=== PATIENT | female | born 1965 | race Caucasian/White ===

== ENCOUNTER 2019-07-22 07:17 | Outpatient (CLI) | payer OTHER, SELFPAY ==
--- NOTE | ~2019-07-22 | US_ITS ---
EXAMINATION: US abdomen complete DATE: 07/22/2019 08:49 INDICATION: Myelofibrosis. Hepatosplenomegaly. TECHNIQUE: Multiple grayscale and Doppler ultrasound images of the abdomen were obtained. COMPARISON: Ultrasound abdomen 11/27/2017 FINDINGS: Abdominal aorta is normal in caliber. Inferior vena cava is normal. The visualized portions of the head and body of the pancreas are normal. The liver is normal in size. There is a chronic 4.2 cm hyperechoic mass in the liver, likely a hemangioma or focal steatosis. There is normal flow in ma in portal vein. The gallbladder is normal in size. No gallstones or gallbladder wall thickening. Ther e was no sonographic Mojica sign. The common duct is normal and measures 4 mm. The kidneys are normal in size. There is splenomegaly measuring 17.1 cm. IMPRESSION: 1. Moderate splenomegaly. Reviewed, dictated and finalized at location A. LOADER IMPRESSION: 1. Moderate splenomegaly.
== END 2019-07-22 07:18 | disposition home or self-care (01) ==
PROVIDERS: Visit Provider Internal Medicine Medical Oncology
DX: R16.1 Splenomegaly, not elsewhere classified (principal); D75.81 Myelofibrosis
CPT/HCPCS: 76700

== ENCOUNTER 2022-04-24 15:53 | Emergency (ER) | payer BC, SELFPAY ==
--- NOTE | ~2022-04-24 | XR_ITS ---
XR chest 2V INDICATION: Cough with shortness of breath TECHNIQUE: 2 view chest. FINDINGS: No prior studies for comparison. There is mild bilateral interstitial prominence and peribronchial cuffing. There is elevation of the right diaphragm. There is no focal consolidation, pleural effusion, or pneumothorax. The cardiomediastinal silhouette is normal. IMPRESSION: 1. Findings most consistent with bronchiolitis versus an atypical or viral pneumonia. Reviewed, dictated and finalized at location A. MENT ASSEMBLER IMPRESSION: 1. Findings most consistent with bronchiolitis versus an atypical or viral pne [facility].
[2022-04-24 16:08] VITALS: BP 120/64; PULSE 92; RESP 24; TEMP 36.7; O2SAT 93
--- NOTE | 2022-04-24 16:22 | ED.URI ---
HPI - URI/Sore Throat General Chief Complaint: Upper Respiratory Infection Stated Complaint: Shortness of Breath,Cough Time Seen by Provider: 04/24/22 16:14 Source: patient Mode of arrival: ambulatory Limitations: no limitations History of Present Illness HPI Narrative: Patient presents today with a 3 day history of shortness of breath with exertion with productive cough and rhinorrhea that started today. Denies fever or sore throat. No history of asthma or COPD. She has not tried any [id number] medication for her symptoms prior to arrival. She is a nonsmoker. Related Data Home Medications Medication Instructions Recorded Confirmed allopurinol 300 mg tablet 300 mg PO DAILY 04/24/22 04/24/22 aspirin 81 mg tablet 81 mg PO DAILY 04/24/22 04/24/22 fluoxetine 10 mg capsule 10 mg PO DAILY 04/24/22 04/24/22 furosemide 20 mg tablet 20 mg PO DAILY 04/24/22 04/24/22 lisinopril 20 mg tablet 20 mg PO DAILY 04/24/22 04/24/22 Allergies Allergy/AdvReac Type Severity Reaction Status Date / Time No Known Allergies Allergy Verified 04/24/22 15:59 Review of Systems Review of Systems: CONSTITUTIONAL: Denies body aches, fever, chills, or sweats. EYES: Denies visual changes, redness, or discharge. ENT: Denies congestion, sore throat, or otalgia.+ Rhinorrhea CARDIOVASCULAR: Denies chest pain, palpitations, or edema. RESPIRATORY: + cough, shortness of breath with exertion. GASTROINTESTINAL: Denies abdominal pain, nausea, vomiting, or diarrhea. GENITOURINARY: Denies dysuria or hematuria. SKIN: Denies rash, itching, or wounds. MUSCULOSKELETAL: Denies back pain, joint pain, or myalgia. NEUROLOGIC: Denies headache, numbness, tingling, or weakness. PSYCH: Denies depression or anxiety. PMFSH Comments At time of signature, I have reviewed and agree with nursing past medical, surgical, social and family history unless otherwise noted. Please see nursing chart for further information. There is no relevant family history pertinent to the presenting complaint Exam Narrative: GENERAL: Well-appearing, well-nourished, and in no acute distress. HEAD: Normocephalic, atraumatic. EYES: EOMI. No redness or drainage. Conjunctivae normal. ENT: Mucous membranes pink and moist. Nares clear. No rhinorrhea. TMs normal bilaterally. Throat normal. Uvula midline. NECK: Normal AROM. Supple. No lymphadenopathy. CHEST: No respiratory distress. Clear to auscultation. HEART: Regular rate and rhythm. No murmur appreciated. Normal peripheral pulses. EXTREMITIES: Normal range of motion. No edema. SKIN: Warm, dry, no rash. Capillary refill normal. Normal skin turgor. NEURO: No focal deficits. Alert and oriented x3. Gait steady. PSYCH: Normal affect. No signs of depression or anxiety. Course Course Level of Care: Express Care Visit Vital Signs Vital signs: Vital Signs Temperature 98.0 F 04/24/22 16:08 Pulse Rate 92 04/24/22 16:08 Respiratory Rate 24 H 04/24/22 16:08 Blood Pressure 120/64 04/24/22 16:08 Pulse Oximetry 93 04/24/22 16:08 Oxygen Delivery Room Air 04/24/22 16:08 Temperature 98.0 F 04/24/22 16:08 Pulse Rate 92 04/24/22 16:08 Respiratory Rate 24 H 04/24/22 16:08 Blood Pressure 120/64 04/24/22 16:08 Pulse Oximetry 93 04/24/22 16:08 Oxygen Delivery Room Air 04/24/22 16:08 reviewed MDM - URI/Sore Throat MDM Narrative Medical decision making narrative: Will treat pt with abx to cover for atypical pneumonia. Will also treat her with some steroids for shortness of breath. Differential Diagnosis Differential diagnosis: Likely upper respiratory infection, viral infection, bronchitis, influenza and other ( COVID-19, pneumonia) Lab Data Attestation: I reviewed the patient's lab results. Lab results narrative: COVID-19 negative Labs: Influenza A Screen Negative Reference Range: Negative Influenza B Screen
== END 2022-04-24 17:00 | disposition home or self-care (01) ==
PROVIDERS: Emergency Provider Nurse Practitioner; PCP Family Medicine
DX: J18.9 Pneumonia, unspecified organism (principal); Z79.82 Long term (current) use of aspirin; Z20.822 Contact with and (suspected) exposure to COVID-19
CPT/HCPCS: 71046; 87426; 87804; 99213; C9803; G0463

== ENCOUNTER → 2023-09-23 15:50 | Outpatient (CLI) | payer BC, SELFPAY ==
--- NOTE | ~2023-09-23 | XR_ITS ---
XR hip RT min 2V 09/23/2023 16:02 Indication: Right hip pain Procedure: 2 views right hip Comparison: No prior studies for comparison. Findings: There is moderate osteoarthritis of the right hip. No fracture or traumatic malalignment. N o soft tissue abnormality. No foreign bodies. There is an amorphous calcification in the pelvis which likely represents calcified uterine fibroid. Impression: 1: Moderate osteoarthritis of the right hip. Reviewed, dictated and finalized at location B. Impression: 1: Moderate osteoarthritis of the right hip.
== END ==
LOC: EXPTRAD 15:51
PROVIDERS: PCP Nurse Practitioner Family; Visit Provider Nurse Practitioner Family
DX: M16.11 Unilateral primary osteoarthritis, right hip (principal)
CPT/HCPCS: 73502

== ENCOUNTER 2024-09-18 16:43 | Emergency (ER) | payer BC, SELFPAY ==
--- NOTE | ~2024-09-18 | XR_ITS ---
EXAM: XR abdomen/kub 1V DATE: 09/18/2024 17:57 HISTORY: R flank pain wraps around to RLQ, hematuria . COMPARISON: X-ray chest 04/24/2022; x-ray right hip 5-24. FINDINGS: Right hemidiaphragm elevation. No organomegaly. Normal bowel gas pattern. Degenerative sulaiman nge in the spine, SI joints, and bilateral hips. Multifocal hyperdensities and potential lytic areas in the pelvis. Likely calcified fibroid. Scattered densities over the lower abdomen probably represen ting bowel content. IMPRESSION: No radiographic evidence of obstruction or ileus. Question of mixed lytic and blastic pro cess in the pelvic bones, correlate for history of cancer/metastatic disease, multiple myeloma, or me tabolic disease. Reviewed, dictated and finalized at location K. IMPRESSION: No radiographic evidence of obstruction or ileus. Question of mixed lytic and blastic process in the pelvic bones, correlate for history of cancer /metastatic disease, multiple myeloma, or metabolic disease.
[2024-09-18 16:48] VITALS: BP 134/70; PULSE 75; RESP 16; TEMP 36.6; O2SAT 100
[2024-09-18 17:24] LABS: EDUAAPPEAR Cloudy; EDUABILI Negative (Negative); EDUABLOOD 2+ (Negative); EDUACOLOR1 Yellow; EDUAGLUCOSE Negative (Negative); EDUAKETONE Negative (Negative); EDUALEUKO 1+ (Negative); EDUANITRATE Negative (Negative); EDUAPH 5.5; EDUAPROTEIN 3+ (Negative); EDUASPGRAVITY 1.025; EDUAUROBILI 0.2
--- NOTE | 2024-09-18 17:35 | ED_ITS ---
HPI - Female Genitourinary General Chief complaint: Urogenital-Female Stated complaint: RT Side Pain Time Seen by Provider: 09/18/24 17:35 Source: patient Mode of arrival: ambulatory Limitations: no limitations History of Present Illness HPI Narrative: 59-year-old female presents with complaint of right flank pain radiating to right lower abdomen for the past 3-4 days. Reports that pain is getting progressively worse. Denies nausea vomiting. Afebrile. Not taking any [id number] medications to treat pain. No history of kidney stones. All systems reviewed and negative except as noted above. Related Data Home Medications ?Medication ?Instructions ?Recorded ?Confirmed ?Last Taken ?Type aspirin 81 mg tablet 81 mg PO DAILY 04/24/22 09/18/24 Unknown History ruxolitinib 15 mg tablet (Jakafi) mg 09/18/24 Unknown History Allergies Allergy/AdvReac Type Severity Reaction Status Date / Time No Known Allergies Allergy Verified 09/18/24 17:53 Review of Systems Review of Systems: CONSTITUTIONAL: Denies fever, chills, or sweats. EYES: Denies visual changes, redness, or discharge. ENT: Denies rhinorrhea, congestion, sore throat, or otalgia. CARDIOVASCULAR: Denies chest pain, palpitations, or edema. RESPIRATORY: Denies cough or dyspnea. GASTROINTESTINAL: Denies abdominal pain, nausea, vomiting, or diarrhea. GENITOURINARY: Denies dysuria or hematuria. Reports right flank pain radiating to lower right abdomen With urinary frequency, urgency SKIN: Denies rash or itching. MUSCULOSKELETAL: Denies back pain, joint pain, or myalgia. NEUROLOGIC: Denies headache, numbness, or weakness. PSYCHIATRIC: Denies anxiety or depression. All other systems reviewed are negative, except as documented in HPI. [facility] Past Medical History Medical History (Updated 09/18/24 @ 19:05 by Awilda Pedroza NP) Paronychia of great toe of left foot Onychomycosis Hyperlipidemia Prediabetes Heart murmur SOB (shortness of breath) on exertion BMI 35.0-35.9,adult Right hip pain Edema, lower extremity Encounter to establish care Myelofibrosis Gout Anxiety Depression HTN (hypertension) Family History Family History Father Cerebrovascular accident Hypertension Mother Pancreatic cancer Sibling Diabetes mellitus Hypertension Social History Social History Smoking status: Former smoker Alcohol intake: current Alcohol use details: occasionally Substance use: never Substance use type: does not use Lack of Transportation: No Lack of Food: Never True Current Housing: I Have Housing Concerned About Future Housing: No Difficulty Paying Gas/Electric Bills: No Difficulty Paying for Meds: No Currently Unemployed: No Education: High School Diploma/GED Difficulty w/ Childcare or Family Care: No Comments At time of signature, agree with nursing past medical, surgical, social and family history. There is no relevant family history pertinent to the presenting complaint. Exam Narrative: GENERAL: This is a well-nourished, well-developed patient, in no apparent distress. HEAD: normocephalic, atraumatic. EYES: PERRL. Sclera clear/white. Vision is grossly intact. EARS: External ears normal NOSE: External nose normal NECK: Neck supple, non-tender without lymphadenopathy, masses or thyromegaly. CARDIOVASCULAR: Regular rate and rhythm without murmurs, gallops, or rubs. RESPIRATORY: Clear to auscultation. Breath sounds equal bilaterally. No wheezes, rales, or rhonchi. GASTROINTESTINAL: Abdomen soft, non-tender, nondistended. Bowel sounds are active. No hepato-splenomegaly, or palpable masses. No guarding. SKIN: warm, Dry, intact with no suspicious lesions or rash, good texture and turgor. NEURO: awake, alert, and oriented to person, place and time. There were no obvious focal neurologic abnormalities. EXTREMITIES: No joint tenderness, effusion, or edema noted. No calf tenderness. Negative Homans sign bilaterally. BACK: No CVA tenderness. Course Course Level of Care: Express Care Visit Vital Signs Vital signs: Vital Signs Temperature 36.6 C 09/18/24 16:48 Pulse Rate 75 09/18/24 16:48 Respiratory Rate 16 09/18/24 16:48 Blood Pressure 134/70 09/18/24 16:48 Pulse Oximetry 100 09/18/24 16:48 Oxygen Delivery Room Air 09/18/24 16:48 Temperature 36.6 C 09/18/24 16:48 Pulse Rate 75 09/18/24 16:48 Respiratory Rate 16 09/18/24 16:48 Blood Pressure 134/70 09/18/24 16:48 Pulse Oximetry 100 09/18/24 16:48 Oxygen Delivery Room Air 09/18/24 16:48 reviewed MDM - Female Genitourinary MDM Narrative Medical decision making narrative: Urinalysis positive leukocytes, protein, blood. KUB negative for kidney stone. pt has myelofibrosis, type of blood cancer, Which would explain abnormality seen to patient's pelvis but I did tell her to mention it to her oncologist at next appointment. Prescribed antibiotic for urinary tract infection. Patient is alert, nontoxic. Hemodynamically stable. Recommend follow-up with primary care physician if symptoms are not improving. Please be advised this is a medical document. It is intended for [id number] communication. It is written in medical language and may contain unfamiliar abbreviations or verbiage. Medical documents are intended to carry relevant information, facts as evident, and the clinical opinion of the practitioner at the time of the encounter. This report may have been done utilizing a voice recognition system. Attempts have been made to correct errors. However, there may be uncorrected grammatical, spelling, and recognition errors present. The file time of this note does not necessarily represent the time of service. Differential Diagnosis Differential diagnosis: Likely urinary tract infection Lab Data Labs: Lab Results 09/18/24 Range/Units 17:21 POC Urine Color Yellow POC Urine Clarity Cloudy POC Urine pH 5.5 POC Ur Specif Roper 1.025 POC Urine Protein 3+ (Negative) POC Ur Glucose (UA) Negative (Negative) POC Urine Ketones Negative (Negative) POC Urine Blood 2+ (Negative) POC Urine Nitrite Negative (Negative) POC Urine Bilirubin Negative (Negative) POC Urine Urobilinogen 0.2 POC U Leukocyte Esteras 1+ (Negative) Discharge Plan Discharge Clinical Impression: Urinary tract infection Qualifiers: Urinary tract infection type: site unspecified Hematuria presence: with hematuria Qualified Code(s): N39.0 - Urinary tract infection, site not specified Patient Disposition: Home Condition: Stable Instructions: Antibiotic Form, Urinary Tract Infection in Women (ED) Additional Instructions: the x-ray of your abdomen did not show any kidney stones. Take antibiotic as prescribed to treat urinary tract infection. Drink at least 64 oz of water a day. Take Tylenol or ibuprofen every 6-8 hours as needed for pain. Follow-up with your primary care physician if symptoms are not improving. If you have severe pain , fever, vomiting go to the ER. Patient Language: [place] Prescriptions: New amoxicillin-pot clavulanate 875-125 mg tablet 1 tablet PO Q12H 7 Days Qty: 14 0RF phenazopyridine [Pyridium] 200 mg tablet 200 mg PO TID PRN (Reason: pain) 3 Days Qty: 10 0RF No Action Adult Low Dose Aspirin 81 mg Tablet 81 mg PO DAILY Jakafi 15 mg tablet furosemide 20 mg tablet 30 mg PO DAILY Qty: 135 3RF terbinafine HCl 250 mg tablet 250 mg PO DAILY Qty: 90 1RF Rx Instructions: take 1 tab daily for 90 days, stop for 90 days, then restart daily for 90 da ys. lisinopril 20 mg tablet 20 mg PO BID Qty: 180 3RF fluoxetine 10 mg capsule 10 mg PO DAILY Qty: 90 3RF metformin 500 mg tablet extended release 24 hr 500 mg PO DAILY Qty: 90 3RF Follow-up/Referrals: Kathy Michaud NP [Primary Care Provider] - Time of Disposition: 19:06
--- OUTSIDE RECORDS SUMMARY | 2024-09-18 18:26 | XMS_ITS | Clinical Summary ---
Author Organization [facility] Address [address] [place] [address] Phone Care Team Providers Care Electronic Security Specialist Name Role Phone PattroyJaden MD Unavailable [phone] Arjun Richard MD, Shaka Unavailable [phone] Arnold Johnson MD Primary Care Provider [phone] Allergies No known active allergies Medications aspirin 81 mg tabletIndications :Myelofibrosis (HCC) Take 81 mg by mouth daily. Active naproxen (ALEVE) 220 mg tablet Take by mouth 2 (two) times a day with meals Active FLUoxetine (FLUoxetine) 10 mg tablet/capsule Take 1 tablet/capsule (10 mg total) by mouth daily 90 capsule 3 2 Active lisinopriL (PRINIVIL,ZESTRIL ) 20 mg tablet Take 1 tablet (20 mg total) by mouth 2 (two) times a day 180 tablet 3 2 Active furosemide (LASIX) 20 mg tabletIndications :Essential hypertension TAKE 1 AND 1/2 TABLETS BY MOUTH DAILY 135 tablet 3 2 Active cyanocobalamin (Vitamin B-12) 2,500 mcg tablet, sublingualIndicat ions:Prevention of Vitamin B12 Deficiency 2,500 mcg Active metFORMIN XR (GLUCOPHAGE XR) 500 mg 24 hr tabletIndications :Myelofibrosis (HCC) 1 tablet (500 mg total) daily with breakfast 4 Active cephalexin (KEFLEX) 500 mg capsuleIndication s:Myelofibrosis (HCC) TAKE 1 CAPSULE BY MOUTH EVERY 8 HOURS 4 Active ruxolitinib (Jakafi) 15 mg tabletIndications :Myelofibrosis (HCC) TAKE 1 TABLET BY MOUTH 2 TIMES A DAY. TAKE AT ABOUT THE SAME TIME EACH DAY. TAKE WITH OR WITHOUT FOOD. 60 tablet 11 5 Active Active Problems Problem Noted Date Diagnosed Date Hx of colonic polyp 06/10/2021 Major depressive disorder, recurrent, moderate 0 06/10/2021 Bilateral lower extremity edema 04/16/2020 Hypogammaglobulinemia 12/28/2018 Gout 12/06/2017 Assessment & Plan (12/06/2017 9:46 AM CDT): On allopurinol and diet restriction, doing well. Myelofibrosis 12/02/2017 Overview (04/17/2024): DIAGNOSIS 1. Polycythemia Vera in 2010 2. Post-PV myelofibrosis in 2017 TREATMENT Ruxolitinib 20 mg bid starting 07/2022, reduced to 10mg bid 11/2022, increased to 15 mg bid 10/2023 Assessment & Plan (12/06/2017 9:46 AM CDT): DIPSS score 3 (Intermediate-1). She currently does not have splenomegaly and her fatigue is manageable. We will send peripheral blood for molecular analysis (genoptix) to further stratification of her risk of progression. Currently, we would favor a conservative approach with monthly CBC and close monitoring with visits every 3 months. We would not initiate Jakafi, given her symptoms are not severe enough and on the other hand there is a real risk of worsening her anemia with Jakafi. We discuss that the only curative approach for this disease is allogeneic stem cell transplant. We explained the potential risks and complications of a transplant, including, but not limited to, risk for infections GVHD, graft failure and disease relapse. We sent HLA typing today and we obtained consent to initiate a unrelated donor search, as she does not have a related donor option. We are not planning on proceeding with transplant until further progression of her disease. Essential hypertension, benign 10/07/2013 Overview (08/27/2016): HYPERTENSION NOS Assessment & Plan (12/06/2017 9:47 AM CDT): Hypertension is unchanged. Continue current treatment regimen. Blood pressure will be reassessed in 3 months. Polycythemia vera 11/09/2011 Resolved Problems Problem Noted Date Diagnosed Date Resolved Date Major depressive disorder, recurrent, mild 06/10/2021 01/17/2024 Major depressive disorder, r ecurrent, unspecified 06/10/2021 01/17/2024 Follow up 12/06/2017 01/17/2024 Assessment & Plan (12/06/2017 9:48 AM CDT): We will see her back in 3 months. She knows to call us sooner should she have any further questions or concerns. Encounters Date Type Department Care Team Description 07/17/2024 8:00 AM SUGAR REFINERY SUPERVISOR Office Visit [facility] Bone Marrow Transplant [address] [place] [phone] Jaden Jensen MD Myelofibrosis (HCC) 07/17/2024 7:15 AM SUGAR REFINERY SUPERVISOR Lab [facility] [place] - Lab Collection [address] [place] [address] [address] [place] [address] Myelofibrosis (HCC) 07/17/2024 7:00 AM SUGAR REFINERY SUPERVISOR Lab [facility] Oncology Lab [address] [place] [phone] Myelofibrosis (HCC) from Last 3 Months Immunizations Immunization Administration Dates Next Due Influenza, Unspecified 06/10/2021(Deferr ed: Patient Refused),06/12/2020(Deferred: Patient Refused),05/24/2020(Deferred: Patient Refused),05/24/2019(Deferred: Patient Refused),12/30/2016,02/27/2015,04/03/20 13 Jada (J&J) SARS-CoV-2 Vaccination 07/29/2020 ZOSTER LIVE 12/30/2016 Surgical History Surgery Date Site/Laterality Comments OTHER SURGICAL HISTORY Shoulder left 08/22/15 COLONOSCOPY Medical History Medical History Date Comments Hypertension Hypertension Hx Other Medical Hx Other Medical tubal ligation Gout H/O repair of rotator cuff Liver mass 11/2017 Hypoechoic, dete cted at abdominal US Polycythemia 10/29/2017 Family History Medical History Relation Name Comments Aneurysm Father Hypertension Father No Known Problems Half-Sister Cancer Mother Hypertension Mother Hypertension Other Family history of Hypertension; Diabetes Sister Hydrocephalus Sister Hypertension Sister Relation Name Status Comments Daughter Alive good health Father (Age 64) Half-Sister Alive Mother (Age 62) pancreatic cancer Other Sister Alive with hydrocepha jackie Social History Tobacco Use Types Packs/Day Years Used Date Smoking Tobacco: Former Cigarettes 2 8 1 - 1987 Smokeless Tobacco: Never Comments:1.5 PPD for 8 years , quit >10 years ago Alcohol Use Standard Drinks/Week Comments Yes 0 (1 standard drink = 0.6 oz pur e alcohol) Social drinking AUDIT-C Answer Date Recorded Q1: How often do you have a drink containing alc ohol? 2-4 times a month 06/10/2021 Q2: How many drinks containi ng alcohol do you have on a typical day when you are drinking? 1 or 2 06/10/2021 Q3: How often do you have si x or more drinks on one occasion? Less than monthly 06/10/2021 PHQ-2 Answer Date Recorded PHQ-2 Total Score (If total score is 3 or more points, staff should administer the PHQ-9) 0 09/08/2021 Comments Unknown Sex and Gender Information Value Date Recorded Sex Assigned at Not on file Legal Sex Female 9:14 PM SUGAR REFINERY SUPERVISOR Gender Identity Female 12/20/2020 2:11 PM CDT Sexual Orientation Straight 12/20/2020 2: 11 PM CDT Obstetrics History Last Filed Vital Signs Vital Sign Reading Time Taken Comments Blood Pressure 102/67 07/17/2024 7:58 AM SUGAR REFINERY SUPERVISOR Pulse 62 07/17/2024 7:58 AM SUGAR REFINERY SUPERVISOR Temperature 36.5 C (97.7 F) 07/17/2024 7:58 AM SUGAR REFINERY SUPERVISOR Respiratory Rate 16 07/17/2024 7:58 AM SUGAR REFINERY SUPERVISOR Oxygen Saturation 100% 07/17/2024 7:58 AM SUGAR REFINERY SUPERVISOR Inhaled Oxygen Concentration - - Weight 93 kg (205 lb) 07/17/2024 7:58 AM SUGAR REFINERY SUPERVISOR Height 162.7 cm (5' 4.06 ) 07/17/2024 7:58 AM CS T Body Mass Index 35.13 07/17/2024 7:58 AM SUGAR REFINERY SUPERVISOR Plan of Treatment Health Maintenance Due Date Last Done Comments Breast Cancer Screening-Mammogram 1965 Cervical Cancer Screening 1966 Hepatitis C Screening 1966 DTaP/Tdap/Td Vaccine (1 - Tdap) 1977 Hepatitis B Screening 01/08/1984 Pneumococcal vaccine <65 (1 of 2 - PCV) 1985 Colon Cancer Screening-Colonoscopy 05/04/20162010, 05/04/2011 Zoster Vaccine (1 of 2) 02/24/2017 12/30/2016 Covid-19 Vaccine (2 - Jansse n risk series) 08/26/2020 07/29/2020 Regular Well Visit/Exam 18-64 06/10/2022 06/10/2021 Depression Screening 09/08/2022 09/08/2021, 06/10/2021, 06/12/2020 Influenza Vaccine (Season Ended) 2025 12/30/2016, 02/27/2015, 04/03/2013 Colon Cancer Screening-CT Colonography Discontinued 05/04/2011, 05/04/2011 Colon Cancer Screening-DNA Stool Discontinued 05/04/20, 05/04/2011 Colon Cancer Screening-FIT Discontinued 05/04/2011, Colon Cancer Screening-Sigmoidoscopy Discontinued 04/23, 05/04/2011 Procedures Procedure Name Priority Date/Time Associated Diagnosis Comments EGFR Routine 07/17/2024 7:06 AM SUGAR REFINERY SUPERVISOR Myelofibrosis (HCC) DIFFERENTIAL AUTO Routine 07/17/2024 7:0 6 AM SUGAR REFINERY SUPERVISOR Myelofibrosis (HCC) CBC WITH AUTO DIFFERENTIAL Routine 07/17/2024 7:06 AM SUGAR REFINERY SUPERVISOR Myelofibrosis (HCC) COMPREHENSIVE METABOLIC PANEL Routine 07/17/2024 7:06 AM SUGAR REFINERY SUPERVISOR Myelofibrosis (HCC) LACTATE DEHYDROGENASE Routine 07/17/2024 7:06 AM SUGAR REFINERY SUPERVISOR Myelofibrosis (HCC) URIC ACID Routine 07/17/2024 7:06 AM SUGAR REFINERY SUPERVISOR Myelofibrosis (HCC) COLONOSCOPY Routine 05/04/2011 from Last 3 Months or Most Recently Relevant to Health Maintenance Results * eGFR (07/17/2024 7:06 AM SUGAR REFINERY SUPERVISOR) Pathologist [facility] eGFR 80 >=60 mL/min/1. 73 m2 Comment: Interpretive Data Reference Interval Normal >/= 90 mL/min/1.73m2 Mildly decreased* 60 - 89 mL/min/1.73m2 Mildly to moderately decreased 45 - 59 mL/min/1.73m2 Moderately to severely decreased 30 - 44 mL/min/1.73m2 Severely decreased 15 - 29 mL/min/1.73m2 Kidney Failure < 15 mL/min/1.73m2 *Relative to young adult level Estimated glomerular filtration rate is determined by the 2020 CKD-EPI equation recommended by the National Kidney Foundation (A Unifying Approach to GFR Estimation: Recommendations of the NKF-ASK Task Force on Reassessing the Inclusion of Race in Diagnosing Kidney Disease, JASN 2020). The CKD-EPI equation should not be used for patients with unstable renal function and has not been validated in children and those over 70. Current interpretive data was last reviewed 2021. Blood 07/17/2024 7:06 AM SUGAR REFINERY SUPERVISOR 07/17/2024 7:10 AM SUGAR REFINERY SUPERVISOR Jaden Jensen MD LAB BLOOD ORDERABLES Final Re sult [facility] Department of Laboratories [place], [place] [id number] * Differential, auto (07/17/2024 7:06 AM SUGAR REFINERY SUPERVISOR) Pathologist [facility] Neutrophil abs 4.8 1.5 - 6.5 K/cumm Comment:Testing performed by : [facility][Note 3] Heme Lab, [address] [place] [phone] Lymphocyte abs 2.7 0.8 - 3.3 K/cumm [facility] Comment:Testing performed by : [facility][Note 3] Heme Lab, [facility] [place] [address] Monocyte abs 0.7 0.2 - 0.8 K/cumm [facility] Comment:Testing performed by : [facility][Note 3] Heme Lab, [address] [place] [phone] Eosinophil abs 0.1 0.0 - 0.5 K/cumm [facility] Comment:Testing performed by : [facility][Note 3] Heme Lab, [address] [place] [phone] Basophil abs 0.1 0.0 - 0.1 K/cumm [facility] Comment:Testing performed by : [facility][Note 3] Heme Lab, [address] [place] [phone] Neutrophil pct 56.9 % [facility] Comment: Interpretive Data Percent cell count reference ranges are not reported, since discordance with absolute values may lead to misinterpretation of CBC data. Current Interpretive Data was last revised on 2017. Testing performed by: [facility], [address] [place] [phone] Lymphocyte pct 32.0 % [facility] Comment: Interpretive Data Percent cell count reference ranges are not reported, since discordance with absolute values may lead to misinterpretation of CBC data. Current Interpretive Data was last revised on 2017. Testing performed by: [facility][Note 3] Heme Lab, [address] [place] [phone] Monocyte pct 8.8 % [facility] Comment: Interpretive Data Percent cell count reference ranges are not reported, since discordance with absolute values may lead to misinterpretation of CBC data. Current Interpretive Data was last revised on 2017. Testing performed by: [facility], [address] [place] [phone] Eosinophil pct 1.5 % [facility] Comment: Interpretive Data Percent cell count reference ranges are not reported, since discordance with absolute values may lead to misinterpretation of CBC data. Current Interpretive Data was last revised on 2017. Testing performed by: [facility][Note 3] Heme Lab, [address] [place] [phone] Basophil pct 0.8 % [facility] Comment: Interpretive Data Percent cell count reference ranges are not reported, since discordance with absolute values may lead to misinterpretation of CBC data. Current Interpretive Data was last revised on 2017. Testing performed by: [facility], [address] [place] [address] Blood 07/17/2024 7:06 AM SUGAR REFINERY SUPERVISOR 07/17/2024 7:07 AM SUGAR REFINERY SUPERVISOR Jaden Jensen MD LAB BLOOD ORDERABLES [facility] Department [place] [address] * (ABNORMAL) CBC with auto differential (07/17/2024 7:06 AM SUGAR REFINERY SUPERVISOR) WBC 8.4 3.8 - 9.9 K/cumm Comment:Testing performed by : [facility][Note 3] Heme Lab, [address] [place] [address] Hgb 11.4(L) 11.9 - 15.5 g/dL [facility] Comment:Testing performed by : [facility][Note 3] Heme Lab, [address] [place] [address] Hct 34.8(L) 35.6 - 45.5 % [facility] Comment:Testing performed by : [facility][Note 3] Heme Lab, [address] [place] [address] Plt 159 150 - 400 K/cumm [facility] Comment:Testing performed by : [facility][Note 3] Heme Lab, [address] [place] [address] MPV 8.1 6.8 - 10.4 fL [facility] Comment:Testing performed by : [facility][Note 3] Heme Lab, [address] [place] [address] RBC 3.77(L) 3.90 - 5.20 M/cumm [facility] Comment:Testing performed by : [facility][Note 3] Heme Lab, [address] [place] [address] MCV 92.5 81.3 - 96.4 fL [facility] Comment:Testing performed by : [facility][Note 3] Heme Lab, [address] [place] [address] MCH 30.2 27.1 - 33.3 pg [facility] Comment:Testing performed by : [facility][Note 3] Heme Lab, [address] [place] [phone] MCHC 32.7 32.3 - 35.7 g/dL [facility] Comment:Testing performed by : [facility][Note 3] Heme Lab, [address] [place], [place] [phone] RDW CV 19.6(H) 11.1 - 14.9 % [facility] Comment:Testing performed by : [facility][Note 3] Heme Lab, [address] [place] [phone] NRBC abs 0.00 0.00 - 0.01 K/cumm [facility] Comment:Testing performed by : [facility][Note 3] Heme Lab, [address] [place] [phone] Blood 07/17/2024 7:06 AM SUGAR REFINERY SUPERVISOR 07/17/2024 7:07 AM SUGAR REFINERY SUPERVISOR Jaden Jensen MD LAB BLOOD ORDERABLES Final Re sult [facility] Department [place] [address] * (ABNORMAL) Uric acid (07/17/2024 7:06 AM SUGAR REFINERY SUPERVISOR) Uric acid 7.4(H) 2.5 - 7.0 mg/dL Blood 07/17/2024 7:06 AM SUGAR REFINERY SUPERVISOR 07/17/2024 7:10 AM SUGAR REFINERY SUPERVISOR Jaden Jensen MD LAB BLOOD ORDERABLES Final Re sult [facility] [place] [address] * Lactate dehydrogenase (LD) (07/17/2024 7:06 AM SUGAR REFINERY SUPERVISOR) Lactate dehydrogenase (LDH) 152 100 - 250 Units/L Blood 07/17/2024 7:06 AM SUGAR REFINERY SUPERVISOR 07/17/2024 7:10 AM SUGAR REFINERY SUPERVISOR us Jaden Jensen MD LAB BLOOD ORDERABLES Final Re sult [facility] Department [place] [address] * Comprehensive metabolic panel (07/17/2024 7:06 AM SUGAR REFINERY SUPERVISOR) Sodium 141 135 - 145 mmol/L Potassium, pl 4.2 3.3 - 4.9 mmol/L [facility] Chloride 103 97 - 110 mmol/L [facility] CO2 31 22 - 32 mmol/L [facility] Anion gap 7 2 - 15 mmol/L [facility] BUN 17 6 - 25 mg/dL [facility] Creatinine 0.84 0.60 - 1.10 mg/dL [facility] Glucose 118 70 - 199 mg/dL [facility] Comment: Interpretive Data Fasting glucose >/= 126 mg/dl is diagnostic for diabetes. Fasting is defined as no caloric intake for at least 8 hours. Fasting glucose between 100 mg/dl to 125 mg/dl is diagnostic of prediabetes. In a patient with classic symptoms of hyperglycemia or hyperglycemic crisis, a random glucose >/= 200 mg/dl is diagnostic for diabetes. In the absence of unequivocal hyperglycemia, results should be confirmed by repeat testing. The classification and Diagnosis of Diabetes Diabetes Care 2021; 46: S19-S40. Current interpretive data was last revised 2022. Calcium 9.3 8.5 - 10.3 mg/dL [facility] Bilirubin, total 0.3 0.1 - 1.2 mg/dL [facility] Protein, pl 7.1 6.5 - 8.5 g/dL [facility] Albumin 4.5 3.5 - 5.0 g/dL [facility] Alk phos 91 40 - 130 Units/L [facility] ALT 16 7 - 45 Units/L [facility] AST 28 10 - 45 Units/L [facility] Blood 07/17/2024 7:06 AM SUGAR REFINERY SUPERVISOR 07/17/2024 7:10 AM SUGAR REFINERY SUPERVISOR Jaden Jensen MD LAB BLOOD ORDERABLES Final Re sult [facility] Department [place] [address] * Colonoscopy (05/04/2011) Anatomical Region Laterality Modality Other Historical Provider ENDOSCOPY PROCEDURES Iris l Result from Last 3 Months or Most Recently Relevant to Health Maintenance Insurance [facility] ACC[facility] CHOICE [employer] ACCESS CHOICE [facility] Care Teams Electronic Security Specialist Relationship Specialty Start Date End Date Arnold Johnson MD [address] [id number] PCP - General Family Medicine 08/11/22 Jaden Jensen MD Consulting Physician Medical Oncology 12/01/17 Shaka Díaz Jr., MD Medical Oncologist/Tumbler Plater Medical Oncology 12/29/17
--- OUTSIDE RECORDS SUMMARY | 2024-09-18 18:26 | XMS_ITS | Encounter Summary ---
Author Organization [facility] Address [address] [place] [address] Phone Care Team Providers Care Deckhand Clam Dredge Name Role Phone Akil De La O MD Primary Care Provider [phone]- [phone] Reason for Visit * Reason Comments Medication Refill Encounter Details Date Type Department Care Team (Late st Contact Info) Description 06/11/2020 Refill [facility] - Internal [facility] - [place] [address] [place] [phone] Akil De La O MD [address] [facility] [place], [place] [phone] Medication Refill Social History Tobacco Use Types Packs/Day Years Used Date Smoking Tobacco: Former Cigarettes 2 10 0 11/25/1978 - 11/25/1988 Smokeless Tobacco: Never Alcohol Use Standard Drinks/Week Comments Yes 0 (1 standard drink = 0.6 oz pur e alcohol) occasionally Comments Unknown Sex and Gender Information Value Date Recorded Sex Assigned at Not on file Legal Sex Female 10:38 PM CDT Gender Identity Not on file Sexual Orientation Not on file documented as of this encounter Miscellaneous Notes * Telephone Encounter - Mali Michael RN - 06/12/2020 8:18 AM CST Please review and sign. NCE PROFESSOR documented in this encounter Plan of Treatment Not on file documented as of this encounter Visit Diagnoses Not on filedocumented in this encounter Care Teams Deckhand Clam Dredge Relationship Specialty Start Date End Date De La O, Akil K, MD [address] [place] [address] PCP - General Internal Medicine 11/01/18 02/19/22 documented as of this encounter
--- OUTSIDE RECORDS SUMMARY | 2024-09-18 18:26 | XMS_ITS | Encounter Summary ---
Author Organization [facility] Address [address] [place] [address] Phone Care Team Providers Care Digital Account Director Name Role Phone Akil De La O MD Primary Care Provider [phone] Reason for Visit * Reason Comments Medication Refill Encounter Details Date Type Department Care Team (Late st Contact Info) Description 11/20/2020 Refill [facility] - Internal Medicine - [place] [address] [place] [phone] Akil De La O MD [address] [facility] [address] Medication Refill Social History Tobacco Use Types [...] Telephone Encounter - Mali Michael RN - 11/21/2020 7:54 AM CDT Please review and sign. documented in this encounter Plan of Treatment Not on file documented as of this encounter Visit Diagnoses Not on filedocumented in this encounter Care Teams Digital Account Director Relationship Specialty Start Date End Date Akil De La O MD [address] [place] [address] PCP - General Internal Medicine 11/01/18 02/19/22 documented as of this encounter
--- OUTSIDE RECORDS SUMMARY | 2024-09-18 18:26 | XMS_ITS | Clinical Summary ---
Author Organization [facility] Address [address], [address] [address] Phone Care Team Providers Care Food Service Worker Name Role Phone Unavailable Primary Care Provider Unavailabl e Allergies No known active allergies Medications furosemide (LASIX) 20 MG Tablet TAKE 1 TABLET BY MOUTH DAILY 90 Tablet 02/10/2021 Active allopurinol (ZYLOPRIM) 300 MG TabletIndication s:Gout, unspecified cause, unspecified chronicity, unspecified site TAKE 1 TABLET BY MOUTH DAILY 15 Tablet 09/29/2021 Active lisinopril (PRINIVIL, ZESTRIL) 20 MG Tablet TAKE 1 TABLET BY MOUTH TWICE DAILY 28 Tablet 10/08/2021 Active Active Problems Problem Noted Date Diagnosed Date Gout 04/16/2020 Essential hypertension, benign 04/16/2020 Bilateral lower extremity edema 04/16/2020 Edema 03/29/2015 Polycythemia vera 11/09/2011 Family History Medical History Relation Name Comments Aneurysm Father brain Stroke Father Cancer Mother Pancreatic Relation Name Status Comments Father Mother Social History Tobacco Use Types Packs/Day Years [...] on file Sexual Orientation Not on file Last Filed Vital Signs Vital Sign Reading Time Taken Comments Blood Pressure - - Pulse - - Temperature - - Respiratory Rate - - Oxygen Saturation - - Inhaled Oxygen Concentration - - Weight 87.1 kg (192 lb) 01/06/2019 11:00 AM CDT Height 165.1 cm (5' 5 ) 01/06/2019 11:00 AM CDT Body Mass Index 31.95 01/06/2019 11:00 AM CDT Plan of Treatment Health Maintenance Due Date Last Done Comments Hepatitis C Virus (HCV) Screening 1965 TdaP Immunization 1966 Hepatitis B Immunization (1 of 3 - 19+ 3-dose series) 1985 Pneumococcal Immunization (5 0+ years) (1 of 2 - PCV) 1985 Zoster Immunization (1 of 2) 1985 Colonoscopy 2011 Colorectal Cancer Screening 2011 Cologuard 01/08/2016 Immunochemical Fecal Occult Blood 01/08/2016 SARS-COV-2 Immunization (2 - Jada risk series) 08/26/2020 07/29/2020 Influenza Immunization (#1) 2024 Respiratory Syncytial Virus (RSV) Immunization (Adult) (1 - 1-dose 75+ series) 2041 Meningococcal Immunization (ACWY) Aged Out No longer eligible based on patient's age to complete this topic Rotavirus Immunization Aged Out No lo nger eligible based on patient's age to complete this topic
--- OUTSIDE RECORDS SUMMARY | 2024-09-18 18:26 | XMS_ITS | Encounter Summary ---
Author Organization [facility] Address [address] [place] [address] Phone Care Team Providers Care Tower Director Name Role Phone Akil De La O MD Primary Care Provider [phone] Reason for Visit * Reason Comments Medication Refill Encounter Details Date Type Department Care Team (Late st Contact Info) Description 12/11/2021 Refill [facility] - Internal Medicine - [place] [address] [place] [phone] Akil De La O MD [address] [place] [address] Medication Refill Social History Tobacco Use Types [...] on file documented as of this encounter Plan of Treatment Not on file documented as of this encounter Visit Diagnoses Diagnosis Gout, unspecified cause, unspecified chronicity, unspecified site documented in this encounter Care Teams Tower Director Relationship Specialty Start Date End Date Akil De La O MD [address] [place] [address] PCP - General Internal Medicine 11/01/18 02/19/22 documented as of this encounter
--- OUTSIDE RECORDS SUMMARY | 2024-09-18 18:26 | XMS_ITS | Encounter Summary ---
Author Organization [facility] Address [address] [place] [address] Phone Care Team Providers Care Steam Finisher Name Role Phone Akil De La O MD Primary Care Provider [phone] Reason for Visit * Reason Comments Medication Refill Encounter Details Date Type Department Care Team (Late st Contact Info) Description 11/25/2020 Refill [facility] - Internal Medicine - [place] [address] [place] [phone] Akil De La O MD [address] [facility] [place] [address] Medication Refill Social History Tobacco Use Types [...] Telephone Encounter - Mali Michael RN - 11/26/2020 8:51 AM CDT Please review and sign. documented in this encounter Plan of Treatment Not on file documented as of this encounter Visit Diagnoses Not on filedocumented in this encounter Care Teams Steam Finisher Relationship Specialty Start Date End Date Akil De La O MD [address] [place] [address] PCP - General Internal Medicine 11/01/18 02/19/22 documented as of this encounter
--- OUTSIDE RECORDS SUMMARY | 2024-09-18 18:26 | XMS_ITS | Encounter Summary ---
Author Organization [facility] Address [address] [place] [address] Phone Care Team Providers Care Convict Guard Name Role Phone Akil De La O MD Primary Care Provider [phone] Jaden Jensen MD Unavailable [phone] Arjun Richard MD, Shaka Unavailable [phone] Yoseph Canada MD Primary Care Provider [phone] Arnold Johnson MD Primary Care Provider [phone] Encounter Details Date Type Department Care Team (Late st Contact Info) Description 12/28/2018 Treatment [facility] [address] [facility] [place] [phone] April Toro RN Social History Tobacco Use Types Packs/Day Years Used Date Smoking Tobacco: Former Cigarettes Q uit: 1987 Smokeless Tobacco: Never Comments:1.5 PPD for 8 years , quit >10 years ago Alcohol Use Standard Drinks/Week Comments No 0 (1 standard drink = 0.6 oz pur e alcohol) Social drinking Comments Unknown Sex and Gender Information Value Date Recorded Sex Assigned at Not on file Legal Sex Female 9:14 PM [employer] Gender Identity Female 12/20/2020 2:11 PM CDT Sexual Orientation Straight 12/20/2020 2: 11 PM CDT documented as of this encounter Plan of Treatment Not on file documented as of this encounter Visit Diagnoses Not on filedocumented in this encounter Additional Health Concerns Infection Onset Date Last Indicated Resolved Time COVID: Suspected 12/13/2020 12/13/2020 12/13/2020 2:22 PM CDT COVID: Suspected 11/12/2021 11/12/2021 11/13/2021 3:05 AM CDT COVID: Suspected 11/12/2021 11/12/2021 11/13/2021 7:09 AM CDT documented as of this encounter Care Teams Convict Guard Relationship Specialty Start Date End Date Akil De La O MD [address] [place] [address] PCP - General 09/08/17 06/11/20 Yoseph Canada MD [address] [place] [address] PCP - General Family Medicine 06/12/20 08/10/22 Arnold Johnson MD [address] [address] PCP - General Family Medicine 08/11/22 Jaden Jensen MD [address] [place] [address] Consulting Physician Medical Oncology 12/01/17 Shaka Díaz Jr., MD [address] [place] [address] Medical Oncologist/Nike Athlete Medical Oncology 12/29/17 documented as of this encounter
--- OUTSIDE RECORDS SUMMARY | 2024-09-18 18:26 | XMS_ITS | Referral Summary ---
Author Organization [facility] Address [address] [place] [address] Phone Care Team Providers Care Nutritionalist Name Role Phone Jaden Jensen MD Unavailable [phone] Arjun Richard MD, Shaka Unavailable [phone] Arnold Johnson MD Primary Care Provider [phone] Encounters Date Type Department Care Team Description 07/17/2024 7:15 AM ASSOCIATE TECHNICIAN Lab [facility] - Lab Collection [address] [place] [id number] Myelofibrosis (HCC) 07/17/2024 8:00 AM ASSOCIATE TECHNICIAN Office Visit [facility] [address] [place] [phone] Jaden Jensen MD Myelofibrosis (HCC) 07/17/2024 7:00 AM ASSOCIATE TECHNICIAN Lab [facility] [address] [place] [phone] Myelofibrosis (HCC) from Last 3 Months Allergies No known active allergies Medications aspirin [...] 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 She currently does not have splenomegaly and her fatigue is manageable. We will send peripheral blood for molecular analysis ([employer]) to further stratification of her risk of [...] she have any further questions or concerns. Immunizations Immunization Administration Dates Next Due Influenza, Unspecified 06/10/2021(Deferr ed: Patient Refused),06/12/2020(Deferred: Patient Refused),05/24/2020(Deferred: Patient Refused),05/24/2019(Deferred: Patient Refused),12/30/2016,02/27/2015,04/03/20 13 Jada (J&J) SARS-CoV-2 Vaccination 07/29/2020 ZOSTER LIVE 12/30/2016 Social History Tobacco Use Types Packs/Day Years Used Date Smoking Tobacco: Former Cigarettes 2 8 1 980 - 1987 Smokeless Tobacco: Never Comments:1.5 PPD [...] on file Legal Sex Female 9:14 PM ASSOCIATE TECHNICIAN Gender Identity Female 12/20/2020 2:11 PM CDT Sexual Orientation Straight 12/20/2020 2: 11 PM CDT Last Filed Vital Signs Vital Sign Reading Time Taken Comments Blood Pressure 102/67 07/17/2024 7:58 AM ASSOCIATE TECHNICIAN Pulse 62 07/17/2024 7:58 AM ASSOCIATE TECHNICIAN Temperature 36.5 C (97.7 F) 07/17/2024 7:58 AM ASSOCIATE TECHNICIAN Respiratory Rate 16 07/17/2024 7:58 AM ASSOCIATE TECHNICIAN Oxygen Saturation 100% 07/17/2024 7:58 AM ASSOCIATE TECHNICIAN Inhaled Oxygen Concentration - - Weight 93 kg (205 lb) 07/17/2024 7:58 AM ASSOCIATE TECHNICIAN Height 162.7 cm (5' 4.06 ) 07/17/2024 7:58 AM CS T Body Mass Index 35.13 07/17/2024 7:58 AM ASSOCIATE TECHNICIAN Plan of Treatment Not on file Procedures Procedure Name Priority Date/Time Associated Diagnosis Comments EGFR Routine 07/17/2024 7:06 AM ASSOCIATE TECHNICIAN Myelofibrosis (HCC) DIFFERENTIAL AUTO Routine 07/17/2024 7:0 6 AM ASSOCIATE TECHNICIAN Myelofibrosis (HCC) CBC WITH AUTO DIFFERENTIAL Routine 07/17/2024 7:06 AM ASSOCIATE TECHNICIAN Myelofibrosis (HCC) COMPREHENSIVE METABOLIC PANEL Routine 07/17/2024 7:06 AM ASSOCIATE TECHNICIAN Myelofibrosis (HCC) LACTATE DEHYDROGENASE Routine 07/17/2024 7:06 AM ASSOCIATE TECHNICIAN Myelofibrosis (HCC) URIC ACID Routine 07/17/2024 7:06 AM ASSOCIATE TECHNICIAN Myelofibrosis (HCC) COLONOSCOPY Routine 05/04/2011 from Last 3 Months or Most Recently Relevant to Health Maintenance Results * eGFR (07/17/2024 7:06 AM ASSOCIATE TECHNICIAN) eGFR 80 >=60 mL/min/1. 73 m2 Comment: [...] last reviewed 2021. Blood 07/17/2024 7:06 AM ASSOCIATE TECHNICIAN 07/17/2024 7:10 AM ASSOCIATE TECHNICIAN Jaden Jensen MD LAB BLOOD ORDERABLES Final Re sult [facility] [place] [address] * Differential, auto (07/17/2024 7:06 AM ASSOCIATE TECHNICIAN) Neutrophil abs 4.8 1.5 - 6.5 K/cumm Comment:Testing performed by : [facility], [address] [place] [phone] Lymphocyte abs 2.7 0.8 - 3.3 K/cumm [facility] Comment:Testing performed by : [facility], [address] [place] [phone] Monocyte abs 0.7 0.2 - 0.8 K/cumm [facility] Comment:Testing performed by : [facility], [address] [place], [place] [phone] Eosinophil abs 0.1 0.0 - 0.5 K/cumm [facility] Comment:Testing performed by : [facility], [address] [place] [address] Basophil abs 0.1 0.0 - 0.1 K/cumm [facility] Comment:Testing performed by : [facility], [address] [place] [address] Neutrophil pct 56.9 % [facility] Comment: Interpretive Data Percent cell count reference ranges are not reported, since discordance with absolute values may lead to misinterpretation of CBC data. Current Interpretive Data was last revised on 2017. Testing performed by: [facility], [address] [place] [phone] Lymphocyte pct 32.0 % [facility] Comment: Interpretive Data Percent cell count reference ranges are not reported, since discordance with absolute values may lead to misinterpretation of CBC data. Current Interpretive Data was last revised on 2017. Testing performed by: [facility], [address] [place] [phone] Monocyte pct 8.8 % [facility] Comment: Interpretive Data Percent cell count reference ranges are not reported, since discordance with absolute values may lead to misinterpretation of CBC data. Current Interpretive Data was last revised on 2017. Testing performed by: [facility], [address] [place] [phone] Eosinophil pct 1.5 % [facility] Comment: Interpretive Data Percent cell count reference ranges are not reported, since discordance with absolute values may lead to misinterpretation of CBC data. Current Interpretive Data was last revised on 2017. Testing performed by: [facility], [address] [place] [address] Basophil pct 0.8 % [facility] Comment: Interpretive Data Percent cell count reference ranges are not reported, since discordance with absolute values may lead to misinterpretation of CBC data. Current Interpretive Data was last revised on 2017. Testing performed by: [facility], [address] [place] [address] Blood 07/17/2024 7:06 AM ASSOCIATE TECHNICIAN 07/17/2024 7:07 AM ASSOCIATE TECHNICIAN us Jaden Jensen MD LAB BLOOD ORDERABLES Final Re sult [facility] [place] [address] * (ABNORMAL) CBC with auto differential (07/17/2024 7:06 AM ASSOCIATE TECHNICIAN) WBC 8.4 3.8 - 9.9 K/cumm Comment:Testing performed by : [facility], [address] [place] [address] Hgb 11.4(L) 11.9 - 15.5 g/dL [facility] Comment:Testing performed by : [facility], [address] [place] [address] Hct 34.8(L) 35.6 - 45.5 % [facility] Comment:Testing performed by : [facility], [address] [place] [address] Plt 159 150 - 400 K/cumm [facility] Comment:Testing performed by : [facility], [address] [place] [address] MPV 8.1 6.8 - 10.4 fL [facility] Comment:Testing performed by : [facility], [address] [place] [address] RBC 3.77(L) 3.90 - 5.20 M/cumm [facility] Comment:Testing performed by : [facility], [address] [place] [phone] MCV 92.5 81.3 - 96.4 fL [facility] Comment:Testing performed by : [facility], [address] [place], [place] [phone] MCH 30.2 27.1 - 33.3 pg [facility] Comment:Testing performed by : [facility], [address] [place], [place] [phone] MCHC 32.7 32.3 - 35.7 g/dL [facility] Comment:Testing performed by : [facility], [address] [place], [place] [phone] RDW CV 19.6(H) 11.1 - 14.9 % [facility] Comment:Testing performed by : [facility], [address] [place], [place] [phone] NRBC abs 0.00 0.00 - 0.01 K/cumm [facility] Comment:Testing performed by : [facility], [address] [place], [place] [phone] Blood 07/17/2024 7:06 AM ASSOCIATE TECHNICIAN 07/17/2024 7:07 AM ASSOCIATE TECHNICIAN Jaden Jensen MD LAB BLOOD ORDERABLES Final Re sult Performing Organization Address City/[facility] Co de Phone Number [facility] [place] [address] * (ABNORMAL) Uric acid (07/17/2024 7:06 AM ASSOCIATE TECHNICIAN) Uric acid 7.4(H) 2.5 - 7.0 mg/dL Blood 07/17/2024 7:06 AM ASSOCIATE TECHNICIAN 07/17/2024 7:10 AM ASSOCIATE TECHNICIAN Jaden Jensen MD LAB BLOOD ORDERABLES Final Re sult Performing Organization Address City/[facility]/ZIP Co de Phone Number [facility] [place] [address] * Lactate dehydrogenase (LD) (07/17/2024 7:06 AM ASSOCIATE TECHNICIAN) Lactate dehydrogenase (LDH) 152 100 - 250 Units/L Blood 07/17/2024 7:06 AM ASSOCIATE TECHNICIAN 07/17/2024 7:10 AM ASSOCIATE TECHNICIAN Jaden Jensen MD LAB BLOOD ORDERABLES Final Re sult [facility] [place] [address] * Comprehensive metabolic panel (07/17/2024 7:06 AM ASSOCIATE TECHNICIAN) Pathologist [facility] Sodium 141 135 - 145 mmol/L Potassium, pl 4.2 3.3 - 4.9 mmol/L [facility] Chloride 103 97 - 110 mmol/L [facility] CO2 31 22 - 32 mmol/L [facility] Anion gap 7 2 - 15 mmol/L [facility] BUN 17 6 - 25 mg/dL [facility] Creatinine 0.84 0.60 - 1.10 mg/dL [facility] Glucose 118 70 - 199 mg/dL [facility] Comment: Interpretive Data Fasting glucose >/= 126 [...] classification and Diagnosis of Diabetes Diabetes Care 202; 46: S19-S40. Current interpretive data was last revised 2022. Calcium 9.3 8.5 - 10.3 mg/dL [facility] Bilirubin, total 0.3 0.1 - 1.2 mg/dL [facility] Protein, pl 7.1 6.5 - 8.5 g/dL [facility] Albumin 4.5 3.5 - 5.0 g/dL [facility] Alk phos 91 40 - 130 Units/L [facility] ALT 16 7 - 45 Units/L [facility] AST 28 10 - 45 Units/L [facility] Blood 07/17/2024 7:06 AM ASSOCIATE TECHNICIAN 07/17/2024 7:10 AM ASSOCIATE TECHNICIAN Jaden Jensen MD LAB BLOOD ORDERABLES Final Re sult [facility] [address] [facility] [place] [address] * Colonoscopy (05/04/2011) Anatomical Region Laterality Modality Other Historical Provider ENDOSCOPY PROCEDURES Iris l Result from Last 3 Months or Most Recently Relevant to Health Maintenance Insurance [employer] ACCESS CHOICE ANTHEM ACCESS CHOICE Care Teams Nutritionalist Relationship Specialty Start Date End Date Arnold Johnson MD [address] [address] PCP - General Family Medicine 08/11/22 Jaden Jensen MD Consulting Physician Medical Oncology 12/01/17 Shaka Díaz Jr., MD Medical Oncologist/Client Support Associate Medical Oncology 12/29/17
--- OUTSIDE RECORDS SUMMARY | 2024-09-18 18:26 | XMS_ITS | Encounter Summary ---
Author Organization [facility] Address [address] [place] [address] Phone Care Team Providers Care Cyber Intelligence Analyst Name Role Phone Akil De La O MD Primary Care Provider [phone] Reason for Visit * Reason Comments Medication Refill Encounter Details Date Type Department Care Team (Late st Contact Info) Description 07/05/2020 Refill [facility] - [facility] - [place] [address] [facility] [place] [phone] Akil De La O MD [address] [facility] [place] [address] Medication Refill Social History Tobacco Use Types [...] Telephone Encounter - Mali Michael RN - 07/05/2020 8:38 AM CST Please review and sign. IRATORY THERAPIST documented in this encounter Plan of Treatment Not on file documented as of this encounter Visit Diagnoses Not on filedocumented in this encounter Care Teams Cyber Intelligence Analyst Relationship Specialty Start Date End Date De La O, Akil K, MD [address] [place] [address] PCP - General Internal Medicine 11/01/18 02/19/22 documented as of this encounter
--- OUTSIDE RECORDS SUMMARY | 2024-09-18 18:26 | XMS_ITS | Clinical Summary ---
Author Organization [facility] Address [address] [place] [phone] Care Team Providers Care Conservation Planner Name Role Phone Unavailable Primary Care Provider Unavailabl e Allergies No known active allergies Medications allopurinoL (ZYLOPRIM) 300 mg tablet Take 300 mg by mouth daily. 11/23/2019 Active lisinopriL (PRINIVIL) 20 mg tablet Take 20 mg by mouth 2 times daily. 11/07/2019 Active furosemide (LASIX) 20 mg tablet Take 20 mg by mouth daily. Takes 1 1/2 daily Active Active Problems No known active problems Family History Relation Name Status Comments Father Mother Social History Tobacco Use Types Packs/Day Years Used Date Smoking Tobacco: Never Alcohol Use Standard Drinks/Week Comments Yes 0 (1 standard drink = 0.6 oz pur e alcohol) Social Comments Unknown Sex and Gender Information Value Date Recorded Sex Assigned at Not on file Legal Sex Female 8:43 AM CDT Gender Identity Not on file Sexual Orientation Not on file Plan of Treatment Health Maintenance Due Date Last Done Comments DTAP/TDAP/TD VACCINES (1 - Tdap) 1985 HEPATITIS B VACCINES (1 of 3 - 19+ 3-dose series) 12/22 ZOSTER VACCINE (1 of 2) 1985 HPV/Cotest (21-29) 1987 CERVICAL CANCER SCREENING 01/08/1996 HPV/Cotest (30-65) 01/08/1996 PAP SMEAR 01/08/1996 BREAST CANCER SCREENING 2006 COLORECTAL SCREENING 2011 Colorectal Cancer Screening 2011 FIT-DNA Q 3 years 2011 FIT/FOBT Q 1 year 2011 Flex Sig/CT Colonography Q 5 years 2011 INFLUENZA VACCINE (#1) 2023 Insurance [facility] [id number]
== END 2024-09-18 19:10 | disposition home or self-care (01) ==
PROVIDERS: Emergency Provider Nurse Practitioner Family; PCP Nurse Practitioner Family
DX: N39.0 Urinary tract infection, site not specified (principal); Z87.891 Personal history of nicotine dependence; I10 Essential (primary) hypertension; E78.5 Hyperlipidemia, unspecified; R73.03 Prediabetes; R01.1 Cardiac murmur, unspecified; M10.9 Gout, unspecified; F41.9 Anxiety disorder, unspecified; F32.A Depression, unspecified; D75.81 Myelofibrosis; Z79.82 Long term (current) use of aspirin
CPT/HCPCS: 74018; 81003; 87086; 87186; 99213; G0463